=== PATIENT | female | born 1985 | race Caucasian/White ===

== ENCOUNTER → 2022-02-24 | Outpatient (CLI) | payer OTHER ==
[~2022-02-24] MED LIST: ALBU90OI INH; AMOX500 PO; HYDGUAL120 PO
== END ==
LOC: LAB 16:35 → LAB SHORT 16:35
DX: R22.41 Localized swelling, mass and lump, right lower limb (principal)
CPT/HCPCS: 85379

== ENCOUNTER 2024-03-21 14:03 | Emergency (ER) | payer OTHER ==
[~2024-03-21] VITALS: Ht 162.6 cm; Wt 113.4 kg
[~2024-03-21 14:03] MED LIST changes: +ELIQUIS5 M2 PO
[2024-03-21 14:23] VITALS: BP 152/88
== END 2024-03-21 15:19 | disposition home or self-care (01) ==
LOC: ER 14:03
DX: M79.661 Pain in right lower leg (principal); Z79.899 Other long term (current) drug therapy; Z91.030 Bee allergy status
CPT/HCPCS: 93971; 99283-25

== ENCOUNTER 2024-07-29 06:08 | Day surgery (SDC) | payer OTHER ==
[~2024-07-29] VITALS: Ht 162.6 cm; Wt 118.0 kg
[~2024-07-29 06:08] MED LIST changes: +HYDROCHLOROTH12.5 MG PO; +PROG100 PO
[2024-07-29 06:48] VITALS: BP 156/89
[2024-07-29] MEDS ORDERED: Heparin Sodium 1000 Units/ML 10ML MDV ONE (06:54)
[2024-07-29] MEDS ORDERED: NS 1,000 ML IV ONE ×2 (06:54→07:01)
[2024-07-29] MEDS ORDERED: Midazolam HCl 1MG / ML 2ML Vial ONE (07:01)
[2024-07-29] MEDS ORDERED: FentaNYL Citrate 50 MCG/ML 2 ML Injection ONE (07:01)
[2024-07-29 08:49] VITALS: BP 129/79
--- NOTE | 2024-07-29 08:51 | NUR ---
PT RETURNED TO RECOVERY ROOM IN BED. RIGHT POP VEIN SITE SOFT NON-TENDER WITH NO HEMATOMA, SLIGHT TRACK OOZING AND INTACT DRESSING. PT SITTING UP CALL LIGHT IN REACH. PT DRINKING WATER.
[2024-07-29 09:00] VITALS: BP 135/94
[2024-07-29 09:15] VITALS: BP 131/92
--- NOTE | 2024-07-29 09:15 | NUR ---
R POP DRESSING REMOVED AND REPLACED WITH TESS AND CLEAR DRESSING NO HEMATOMA, NO BLEEDING NOTED.
[2024-07-29 09:30] VITALS: BP 127/85
--- NOTE | 2024-07-29 09:35 | NUR ---
SLIGHT DOT OF BLOOD ON TESS; OTHERWISE SITE SOFT NON-TENDER WITH NO HEMAOTMA AND INTACT DRESSING. DISCHARGE INSTRUCTIONS REVIEWED ALL QUESTIONS ANSWERED.
--- NOTE | 2024-07-29 09:50 | NUR ---
20 G IV DISCONTINUED FROM LEFT AC WITH INTACT CANNULA. PT ESCORTED OUT VIA WHEELCHAIR ESCORT.
== END 2024-07-29 09:50 | disposition home or self-care (01) ==
LOC: MHTC 06:08
DX: I87.2 Venous insufficiency (chronic) (peripheral) (principal); N92.0 Excessive and frequent menstruation with regular cycle; M79.89 Other specified soft tissue disorders; Z86.718 Personal history of other venous thrombosis and embolism; Z79.01 Long term (current) use of anticoagulants; Z79.899 Other long term (current) drug therapy; Z90.49 Acquired absence of other specified parts of digestive tract
CPT/HCPCS: 36011; 75820; 76937; 81025; 99152; C1769; J1644; J2250; J3010; J7030; Q9967